=== PATIENT | female | born 1955 | race Caucasian/White ===

== ENCOUNTER 2019-02-01 13:38 | Inpatient (IN) | payer SELFPAY ==
[~2019-02-01] VITALS: Ht 157.5 cm; Wt 104.5 kg
--- NOTE | 2019-02-01 19:10 | NUR ---
HANDOFF REPORT RECEIVED FROM EFRAIN BEJARANO. PT OFF FLOOR FOR SURGERY.
--- NOTE | 2019-02-01 20:15 | CONS ---
[facility] [address], [place] [address] Signed DATE OF CONSULTATION: 02/01/2019 CHIEF COMPLAINT: Right lower quadrant abdominal pain. HISTORY OF PRESENT ILLNESS: Payal is a 63-year-old obese female, who has not been to doctor apparently in some time. They live in the [place] area and came over to our emergency room. She has had three days of increasing right lower quadrant abdominal pain. She has had decreased p.o. intake and vomiting. She has been trying to keep down liquids. In the emergency room, her blood pressure is up a little. She had temperature and she clearly has peritonitis in the right lower quadrant. White count is up at 16,000. She is a little anemic, but apparently she has had anemia in the past. Her BUN and creatinine are up a little bit and magnesium is down a little. She had a chest x-ray, which is fine, but the CT scan showed the thickened dilated appendix with stones in the appendix, but also stones in her kidneys with a fatty liver. I was asked to see her emergently here in the emergency room. In the meantime, she has receiving her second liter of saline along with her cefepime and Flagyl. 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 PAST SURGICAL HISTORY: She had an open cholecystectomy and C-sections x3. SOCIAL HISTORY: She quit smoking 6 weeks ago. She has been smoking half pack of cigarettes a day for many years. She does not drink. She has no primary care provider. They are from [place], [place]. She is to her , Quentin, at #[phone]. They have [address], but she is on disability because of her knees. They prefer the [facility]. Also, she has all her teeth removed. FAMILY HISTORY: Father had diabetes. Mother just had some coronary artery stents placed. REVIEW OF SYSTEMS: She had ten systems reviewed and the above pertinent positives are included. ALLERGIES: None. MEDICATIONS: Electronically Signed By: SHIRLENE DILLON MD 02/01/192014 PATIENT NAME: PAYAL SHAH CONSULTATION DATE OF : 59 REPORT #: [id number] PHYSICIAN: SHIRLENE DILLON MD PCP: NO PRIMARY CARE PHYSICIAN REPORT IS CONFIDENTIAL AND NOT TO BE RELEASED WITHOUT AUTHORIZATION [facility] [address], [place] [address] Signed None. PHYSICAL EXAMINATION: VITAL SIGNS: Blood pressure 141/70, heart rate is 98, her respiratory rate is 16, her temperature is 100.7, O2 sats 98%. She is 5 feet and 2 inches tall and weight is 113 kg exam. GENERAL: Payal is a 63-year-old obese female, lying supine semi-recumbent in her ER bed. Her , son, and I believe her sister are in the room. She does not appear systemically ill or toxic, but she currently does not want to move around in the bed. LUNGS: Clear to auscultation bilaterally. HEART: Regular rate and rhythm without murmurs. ABDOMEN: Obese with localized peritonitis in the right lower quadrant. LABORATORY DATA: Her white blood count 16, hemoglobin 11.4, neutrophils 86, BUN 32, creatinine 2.26, glucose 125, magnesium is 1.4. The albumin is 3.8. RADIOGRAPHIC STUDIES: Chest x-ray is unremarkable. The CT scan shows the dilated thickened appendix with stones in the appendix. She has stones in her kidneys and she has a fatty liver. ASSESSMENT AND PLAN: Payal is a 63-year-old obese female, who presents with three days of appendicitis. She is dehydrated and her renal function is certainly off. Her magnesium is low from the vomiting. At this point, she is receiving her second liter of saline and she is getting her antibiotics as well. We are going to give her some heparin, Pepcid, and some magnesium replacement. We have also called the OR crew and will be getting her appendix out here shortly. We have discussed her current findings along with the location and function of the appendix. We discussed laparoscopic versus open appendectomy. She understands expected intraop and postop course. There is risk including, but not limited to bleeding, infection, scarring, change in contour of the skin, damage to bowel, appendiceal, stump leak, postoperative intraabdominal abscess, incisional hernias, and other unforeseen comorbidities such as blood clots, heart attacks, and strokes. She and her family have expressed understanding and wished to proceed. Shirlene Dillon MD ALB/MODL /[id number] Electronically Signed By: SHIRLENE DILLON MD 02/01/192014 PATIENT NAME: PAYAL SHAH CONSULTATION DATE OF : 59 REPORT #: [id number] PHYSICIAN: SHIRLENE DILLON MD PCP: NO PRIMARY CARE PHYSICIAN REPORT IS CONFIDENTIAL AND NOT TO BE RELEASED WITHOUT AUTHORIZATION [facility] [address] [place], [place] [address] Signed cc: Shirlene Dillon MD Copies: SHIRLENE DILLON MD ~ Electronically Signed By: SHIRLENE DILLON MD 02/01/192014 PATIENT NAME: PAYAL SHAH CONSULTATION DATE OF : 59 REPORT #: [id number] PHYSICIAN: SHIRLENE DILLON MD PCP: NO PRIMARY CARE PHYSICIAN REPORT IS CONFIDENTIAL AND NOT TO BE RELEASED WITHOUT AUTHORIZATION
--- NOTE | 2019-02-01 20:15 | NUR ---
02/01/192014 Neema Sheets PATIENT DENIES PAIN AND NAUSEA. PATIENT IS MOANING WITH EACH EXHALE.
--- NOTE | 2019-02-01 21:41 | NUR ---
PT ARRIVES TO MS FLOOR, 5PA WITH MERLYN LIFT TO TRANSFER PT TO BED. PT TOLERATED WELL, CLEAN CHUX AND DRAW SHEET UNDER PT. PT RATES PAIN 8/10, PRN DILAUDID IV ADMINISTERED. PT DENIES NAUSEA. IVF INFUSING WNL ORDERED. PT ORIENTED X 4, 2L OXYGEN BY OXYMASK ON, CONT. PULSE OX IN PLACE. DRESSING CDI AT MIDLINE, NEYDA DRAIN SANGUINOUS FLUID IN BULB, NO DRAINAGE NOTED ON GAUZE. BOWEL TONES ACTIVE AT THIS TIME THROUGHOUT. SCDS ON. EFRAIN SOTO AND RT ANSHUL IN ROOM. ICE WATER AND JELLO PROVIDED. ZAMUDIO DRAINING YELLOW URINE.
--- NOTE | 2019-02-01 22:22 | NUR ---
PT WITH EYES CLOSED, ON NC 2L, SATING IN THE LOW 90'S. WOKE PT FOR POST OP VITALS. PT ATE SOME JELLO AND WATER PRIOR TO THIS. EMPTIED NEYDA DRAIN, SEROUS SANGUINOUS FLUID, 50 CC. INCISION UNCHAGED FROM ADMISSION. PT STATES PAIN "IS OK". BACK ON OXYMASK PT PLANNING TO REST. FAMILY REMAINS IN ROOM.
--- NOTE | 2019-02-01 23:40 | NUR ---
CALL LIGHT ANSWERE, PT C/O IV SITE LEAKING. R WRIST IV WAS PULLED PT PATIENT ACCIDENTLY. TIP INTACT. IVF NOW INFUSING WNL IN LEFT AC. PT REQUESTING CHICKEN BROTH. DENIES ANY PAIN AT THIS TIME. CALL LIGHT IN REACH.
--- NOTE | 2019-02-02 00:25 | NUR ---
IN PT ROOM FOR IV ANTIBIOTIC ADMINISTRATION. PT PLACED ON 2L OXYGEN BY OXYMASK, SATUARTIONS 87% ON RA PT HAD REMOVED NC. EDUCATION PROVIDED. HOB ELEVATED. SHADOWING NOTED ON MIDLINE INCISION GAUZE, AND NEYDA INSERTION SITE. POST OP VITAL SIGNS COMPLETE. PT DROWSY, FALLING TO SLEEP WITH VS. DENIES ANY PAIN. IV ANTIBIOTIC INFUSING WNL. CLEAN CATCH URINE OBTAINED FROM ZAMUDIO. CALL LIGHT IN REACH, LIGHTS OFF IN ROOM.
--- NOTE | 2019-02-02 01:51 | NUR ---
CALL LIGHT ANSWERED. PT C/O 12/08 ABDOMINAL PAIN. PRN PO PAIN MEDICATION ADMINISTERED, EDUCATION PROVIDED. VSS. SPO2 WNL ON 2L OXYGEN BY OXYMASK. CPOX IN PLACE. LIGHTS OFF IN ROOM.
--- NOTE | 2019-02-02 03:48 | NUR ---
OXYGEN REAPPLIED TO PT, SPO2 88% ON RA PT REMOVED OXYMASK. PLACED ON NC PER PT REQUEST. SPO2 WNL. CONT. PULSE OX ON. IVF INFUSING WNL ORDERED. CALL LIGHT IN REACH. LIGHTS OFF IN ROOM.
--- NOTE | 2019-02-02 06:14 | NUR ---
PT ASSESSMENT COMPLETE. VS STABLE. NEYDA DRAIN STRIPPED AND EMPTIED 55 ML SS FLUID. SMALL AMT SHADOWING ON MIDLINE INCISIONAL DRESSING AND NEYDA GAUZE. PT REFUSES REMOVAL OF DRESSING AT THIS TIME. OCCASIONAL SHARP PAIN IN RLQ, TENDER W PALPATION. PT RATES PAIN 4/10. PRN PO PAIN MEDICATION ADMINISTERED. DENIES NAUSEA. ZAMUDIO EMPTIED. BOWEL TONES HYPOACTIVE X 4. SPO2 WNL ON 2L OXYGEN BY NC. CALL LIGHT IN REACH.
--- NOTE | 2019-02-02 06:47 | NUR ---
PT BACK FROM SURGERY AT 2049. POST OP VSS. PAIN CONTROLLED WITH PO NORCO 1 TABLET. NEYDA DRAIN EMPTIED 105 MLS THIS SHIFT SS FLUID. SMALL AMT SS SHADOWING ON GAUZE AT MIDLINE AND NEYDA INSERTION SITE. BOWEL TONES HYPOACTIVE X 4, ABD SOFT, TENDER IN RUQ. ON 2L OXYGEN BY NC OR OXYMASK THROUGHOUT SHIFT. CPOX IN PLACE.
--- NOTE | 2019-02-02 07:28 | OR ---
[facility] [address] [place], [place] [address] Signed DATE OF OPERATION: 02/01/2019 SURGEON: Shirlene Avendaoñ MD PREOPERATIVE DIAGNOSIS: Acute appendicitis. POSTOPERATIVE DIAGNOSIS: Retrocecal ruptured appendicitis with abscess. PROCEDURE: 1. Laparoscopic converted to open appendectomy. 2. Retrocecal drain placement. ESTIMATED BLOOD LOSS: Minimal. FINDINGS: The appendix was underneath the cecum and the mesentery to the terminal ileum forming an abscess cavity, full of pus. The appendix was ruptured. Consequently, a drain was left in the abscess cavity. We could not expose the deep abscess cavity well enough to constantly identify all structures, if she was converted to an open procedure. INDICATIONS: Payal is a 63-year-old female of 5 feet 2 inches, 113 kg. For at least three days, she has had right lower quadrant abdominal pain with decreased p.o. intake and vomiting. She has been trying to stay hydrated with some p.o. fluids. Her family brought her to our local emergency room for evaluation. She clearly was uncomfortable and of course moving around made it worse. Her temperature was 100.7. She had localized peritonitis in her right lower quadrant. White count was elevated. BUN and creatinine were elevated and magnesium was low. She had a chest x-ray, which was unremarkable. CT scan of the abdomen and pelvis showed the stones in the appendix along with a very thickened dilated appendix with significant periappendiceal inflammation. I was asked to see her urgently in the emergency room. She did receive antibiotics, 2 L of saline, and some magnesium replacement along with her subcutaneous heparin and some Pepcid. I met with Payal, her , and the rest of the family and we had a long discussion regarding her current findings. We discussed the location of function of the appendix. We discussed laparoscopic versus open appendectomy. 3% of the appendectomy was needed to be done open and she certainly was a high candidate for that. Nevertheless, we always start laparoscopically. We did review the expected intraop and postop course. There is risk Electronically Signed By: SHIRLENE AVENDAÑO MD 02/02/19 0728 PATIENT NAME: PAYAL SHAH OPERATIVE REPORT DATE OF : 59 REPORT #: [id number] PHYSICIAN: SHIRLENE AVENDAÑO MD PCP: NO PRIMARY CARE PHYSICIAN REPORT IS CONFIDENTIAL AND NOT TO BE RELEASED WITHOUT AUTHORIZATION [facility] [address] [place], [place] [address] Signed to surgery including, but not limited to bleeding, infection, scarring, change in contour of the skin, damage to bowel, appendiceal stump leak, postoperative intraabdominal abscess, incisional hernias, and other unforeseen comorbidities. They had expressed understanding and wished to proceed. PROCEDURE NOTE: Payal was taken in the operating room and placed in a supine position under general endotracheal tube anesthesia. She was given her preoperative antibiotics along with the subcutaneous heparin. SCDs were utilized. A Ryder catheter was inserted with return of clear yellow urine. She was then prepped and draped in usual sterile fashion. We went ahead and placed our Xi trocar through a standard midline supraumbilical incision. We immediately could see the loop of small bowel that was adherent to the right lower quadrant. She had some adhesions in the right upper quadrant from her previous open appendectomy. She also had a small adhesion just below the umbilicus from previous surgery. We inserted our 5 mm suprapubic trocar under direct visualization. The Blunt Nose grasper was inserted and we were able to sweep the loop of the ileum down from the wall of the right lower quadrant. Underneath that was actually the terminal ileum. After few minutes, we were able to enter the abscess cavity. However, the cecum was somewhat deep along with the appendix. We certainly could not identify the structures adequately and we could not elevate the appendix or the cecum in order to improve our visualization. In addition, there were significant inflammatory changes. Even after irrigation and suction, our visualization was no better. Consequently, we converted her to an open midline incision. This was done sharply with a knife and cautery. The abdomen was entered without difficulty. We had an additional nurse scrub in. We used our Ricardo retractors to give us exposure. I was able to free up the White line of Toldt along the distal right colon and the cecum and that brought our cecum and appendix up out of the right lower quadrant. However, with her body habitus, we were not up out of the abdomen. Nevertheless, we could now see the base of the appendix as it joined the cecum and we followed it down to the tip of the appendix. The base of the appendix was divided between Pean clamps and then we over sewed the appendiceal stump with two [id number] 0 Vicryl sutures. We felt very good about our appendiceal stump. It was gently cauterized. The mesoappendix was clamped, divided, and tied with an 0 Vicryl suture. We then over sewed the mesoappendix with a [id number] 0 Vicryl suture as well. Again, we felt very secured in that. We then irrigated and suctioned out the abscess cavity quite extensively. A #10 flat Juancarlos drain was brought through the lateral side of the right mid quadrant of the abdomen and underneath the cecum and into the abscess cavity and then the tip went down into the pelvis itself. The cecum and small bowel were allowed to return to its position and we placed the omentum over that. The midline fascia was closed with interrupted #1 [id number]-[id number]-[id number] PDS sutures. We then injected local anesthetic into the abdominal wall along with the subcutaneous tissues. The wound was irrigated and suctioned out until clear. The dermis was reapproximated with interrupted 3-0 subcuticular Monocryl sutures. The skin was reapproximated with Electronically Signed By: SHIRLENE AVENDAÑO MD 02/02/19 0728 PATIENT NAME: PAYAL SHAH OPERATIVE REPORT DATE OF : 59 REPORT #: [id number] PHYSICIAN: SHIRLENE AVENDAÑO MD PCP: NO PRIMARY CARE PHYSICIAN REPORT IS CONFIDENTIAL AND NOT TO BE RELEASED WITHOUT AUTHORIZATION [facility] [address] [place] [id number] Signed ruthann. Dry gauze and tape were then applied. Payal's Ryder catheter was left in place. She was awakened from her anesthesia, extubated in the OR, and taken to the recovery room in stable condition. MD MARISOL Shankar/FARIHAL /[id number] Copies: ~ Electronically Signed By: SHIRLENE AVENDAÑO MD 02/02/19 0728 PATIENT NAME: PAYAL SHAH OPERATIVE REPORT DATE OF : 59 REPORT #: [id number] PHYSICIAN: SHIRLENE AVENDAÑO MD PCP: NO PRIMARY CARE PHYSICIAN REPORT IS CONFIDENTIAL AND NOT TO BE RELEASED WITHOUT AUTHORIZATION
--- NOTE | 2019-02-02 10:00 | NUR ---
PATIENT IN BED RESTING. SHE ATE HER BREAKFAST. WARM WASHCLOTH OFFERED. CALL LIGHT IN REACH. NO FURTHER NEEDS AT THIS TIME. WATER REFRESHED.
--- NOTE | 2019-02-02 10:05 | NUR ---
PT REPORTED IMPROVEMENT IN PAIN IN ABDOMEN AFTER DILAUDID ADMINISTRATION. RESTING IN BED NOW. FILTER BED PLACER TOOK VITAL SIGNS. VSS. MADE PLAN WITH PATIENT TO AMBULATE OUT OF BED TWICE TODAY AND REMOVE ZAMUDIO CATHETER ONCE SHE HAS WALKED.
--- NOTE | 2019-02-02 11:41 | NUR ---
PT AMBUALTED IN HALLS WITH PHYSICAL THERAPY, BACK TO BED, REPORTS PAIN 03/09 NOW. 1 TAB NORCO GIVEN NOW
--- NOTE | 2019-02-02 19:42 | NUR ---
REPORT RECEIVED, PT RESTING IN BED, NO NEEDS AT THIS TIME, IV FLUISD INFUSING PER EMAR WNL. CALL LIGHT WITHIN REACH. FAMILY AT BEDSIDE. ON CPOX, O2 SAT >90%. ON RA, NO C/O SOB/CP.
--- NOTE | 2019-02-02 20:15 | NUR ---
EVENING MEDS ADMINISTERED, PT C/O 8/10 ABDOMINAL PAIN AFTER REPOSITIONING, PT GIVEN PRN PAIN MEDICATION PER EMAR. PT TOLERATED WELL. IV FLUIDS/ABX INFUSING PER EMAR WNL. PT RESTING IN BED, AOX4, APPROPRIATE, LS CLEAR/DIMINISHED, PT ENCOURAGED TO CDB, BT ACTIVE, ABD TENDER TO PALPATION. NEYDA DRAIN AND MIDLINE INCISION C/D/I, SMALL AMOUNT OF DRG IN NEYDA DRAIN, SEROSANGUINEOUS. SCD'S ON, PT STATES CMS INTACT, DENIES FURTHER NEEDS AT THIS TIME. CALL LIGHT WITHIN REACH.
--- NOTE | 2019-02-02 20:38 | EKG ---
[facility] [address] [facility] [place] [address] Signed Normal sinus rhythm Moderate voltage criteria for LVH, may be normal variant Borderline ECG No previous ECGs available Confirmed by ANDRAE PICKARD MD ([id number]) on 02/02/2019 8:38:25 PM Electronically Signed By: ANDRAE PICKARD MD 02/02/19 2038 PATIENT NAME: KRISTAL SHAH Electrocardiogram DATE OF : 59 PHYSICIAN: ANDRAE PICKARD MD REPORT #: [id number] REPORT IS CONFIDENTIAL AND NOT TO BE RELEASED WITHOUT AUTHORIZATION
--- NOTE | 2019-02-02 22:49 | NUR ---
PT C/O 5/10 PAIN IN ABDOMEN, PRN PAIN MEDICATION GIVEN PER EMAR. PT TOLERATED WELL. NO FURTHER REQUESTS AT THIS TIME. IV FLUIDS INFUSING PER EMAR WNL. CALL LIGHT WITHIN REACH. FAMILY AT BEDSIDE.
--- NOTE | 2019-02-03 01:00 | NUR ---
PT GIVEN PRN PAIN MEDICATION DUE TO C/O 03/09 ABDOMINAL PAIN. PT'S IV ABX INFUSING PER EMAR WNL. NO FURTHER REQUESTS AT THIS TIME. PT'S O2 SAT NOTED TO BE 88%, PT DENIES SOB/CP, PT PLACED ON 2LNC, TOLERATING WELL. CALL LIGHT WITHIN REACH.
--- NOTE | 2019-02-03 04:11 | NUR ---
PT C/O ITCHING RELATED TO NASAL CANNULA, PT PLACED ON OXY MASK AT 1L, PT TOLERATING WELL. O2 SAT > 90%. IV FLUIDS INFUSING PER EMAR WNL. CALL LIGHT WITHIN REACH.
--- NOTE | 2019-02-03 06:15 | NUR ---
PT GIVEN PRN PAIN MEDICATION PER PTS REQUEST FOR 03/09 PAIN, PT ON RA, NO C/O SOB/CP, PT AWAKE RESTING IN BED, IV FLUIDS INFUSING PER EMAR WNL. CALL LIGHT WITHIN REACH. FALL PRECAUTIONS IN PLACE.
--- NOTE | 2019-02-03 07:05 | NUR ---
BEDSIDE REPORT...PT RESTING IN BED ALERT AND ORIENTED. SMILING AND LAUGHING.
--- NOTE | 2019-02-03 10:02 | NUR ---
PT REPORTS PAIN 4/10 IN ABD. DRESSING CHANGED AT NEYDA AND CLEANED SITE DUE TO DRAINAGE. TWO TABS NORCO 5/325MG PRN PO GIVEN
--- NOTE | 2019-02-03 11:02 | NUR ---
PT RESTING IN BED, ORGAN PIPE FINISHER INTO VISIT ALSO FRIENDS INTO VISIT AT THIS TIME.
--- NOTE | 2019-02-03 12:08 | NUR ---
REPORTS PAIN 4/10 INTERMITTEN, REPORTS SHE DOES NOT WANT PAIN MEDICATIONS AT THIS TIME.
--- NOTE | 2019-02-03 12:30 | NUR ---
[facility] REPORT PAIN 7/10 AT ABD. 1MG I.V. DILAUDID PRN.
--- NOTE | 2019-02-03 13:23 | NUR ---
PT RESTING QUIETLY IN BED EYES CLOSED RR EVEN. PT APPEARS TO BE SLEEPING
--- NOTE | 2019-02-03 15:41 | NUR ---
PT CAITLYN NEGRETE AT SIDE OF BED VISITNG WITH SPOUSE. ICE PACK TO ABD. REPROTS PAIN IS TOLERABLE AT THIS TIME. PT TOLERATING FULL LIQUIDS WELL.
--- NOTE | 2019-02-03 15:46 | NUR ---
CALL LIGHT ANSWERED. PATIENT SITTING UP IN BED. IN ROOM. PATIENT GOES TO USE BATHROOM. PATIENT USES A WALKER. ONE PERSON ASSISTING. PATIENT BACKS TO BED. WARM BLANKET AND ICE PACK PROVIDED. PATIENT IS GOING TO TAKE A SHOWER AFTER DINNER. CALL LIGHT WITHIN REACH. NO OTHER NEEDS AT THIS TIME
--- NOTE | 2019-02-03 17:16 | NUR ---
PATIENT RESTING IN BED. VITAL SIGNS AND I&O DONE. CALL LIGHT WITHIN REACH. NO OTHER NEEDS AT THIS TIME
--- NOTE | 2019-02-03 17:55 | NUR ---
PT HAS BEEN UP AMBULATING IN LEVY, HAD TO GIVE IV PAIN MEDICATION ONCE, PO Q4 NORCO GIVEN OVER SHIFT. PT DIET ADVANCED, TOLERATING FAIR ONLY TRYING FULL LIQUIDS SO FAR. ON ROOM AIR, IVF INFUSING WNL, SCDS ON, PT SLEEPING INTERMITTEN OVER SHIFT, HAS BEEN UP TO RECLINER FOR MEALS. NEYDA IN PLACE DRAINING SMALL AMOUNT OF SEROSANGUINEOUS FLUID. SHE IS ALERT AND PLEASANT. MIDLINE SURGERY SITE, MARTITA INTACT, DRY.
--- NOTE | 2019-02-03 19:30 | NUR ---
REPORT RECEIVED, PT RESTING IN BED, NO NEEDS AT THIS TIME, CALL LIGHT WITHIN REACH. FAMILY AT BEDSIDE.
--- NOTE | 2019-02-03 22:41 | NUR ---
PT C/O 01/07 PAIN, PT GIVEN PRN PAIN MEDICATION PER EMAR. NO FURTHER REQUESTS AT THIS TIME. FAMILY AT BEDSIDE. IV FLUIDS INFUSING PER EMAR WNL.
--- NOTE | 2019-02-04 00:40 | NUR ---
PT C/O 05/10 PAIN AFTER USING THE RESTROOM. PT GIVEN PRN PAIN MEDICATION PER EMAR. PT STATES THAT PAIN WORSENED WITH AMBULATION AND AFTER SHE ATTEMPTED TO LAY ON HER SIDE. INCISION REMAINS C/D/I, NEYDA INTACT, NO FURTHER REQUESTS AT THIS TIME, CALL LIGHT WITHIN REACH. FALL PRECAUTIONS IN PLACE. IV FLUIDS INFUSING PER EMAR WNL.
--- NOTE | 2019-02-04 03:00 | NUR ---
PRN PAIN MEDICATION GIVEN, PT C/O 4/10 PAIN RELATED TO ABDOMEN, PT STATES THAT IT INCREASES TO 7-8/10 WITH MOVEMENT, NO FURTHER REQUESTS AT THIS TIME, CALL LIGHT WITHIN REACH. FALL PRECAUTIONS IN PLACE. FAMILY AT BEDSIDE.
--- NOTE | 2019-02-04 04:42 | NUR ---
PT AOX4 THIS SHIFT, APPROPRIATE, PT RECEIVED PRN PAIN MEDICATION X3 THIS SHIFT DUE TO ABD PAIN. MIDLINE INCISION C/D/I, NEYDA DRAIN INTACT, SMALL AMOUNT OF SEROSANGUINEOUS DRAINAGE, PT IS A 1 PERSON ASSIST W/CANE/WALKER TO BATHROOM. IV FLUIDS/ABX INFUSED PER EMAR WNL. PT'S VSS, AFEBRILE, UO QS. USES CALL LIGHT APPROPRIATELY. PT ON RA WHILE AWAKE, ON OXY MASK AT 2L WHEN SLEEPING.
--- NOTE | 2019-02-04 05:05 | NUR ---
PT NOTED TO BE NAUSEOUS, WRETCHING AT BEDSIDE, PT GIVEN PRN ZOFRAN FOR NAUSEA, PT BACK TO BED, RESTING, NO FURTHER NEEDS AT THIS TIME, CALL LIGHT WITHIN REACH. FALL PRECAUTIONS IN PLACE.
--- NOTE | 2019-02-04 05:35 | NUR ---
PT RESTING IN BED, DENIES NAUSEA AT THIS TIME, CALL LIGHT WITHIN REACH. LAB IN ROOM.
--- NOTE | 2019-02-04 07:15 | NUR ---
BEDSIDE HANDOFF REPORT RECEIVED FROM AUDIO NARRATOR RN. PT RESTING IN BED. PT DENIES NEEDS AT THIS TIME.
--- NOTE | 2019-02-04 07:45 | NUR ---
PT REPORT OF IV LEAKING, IV ACCIDENTALLY PULLED OUT, REMOVED. NEW IV INSERTED TO LEFT FOREARM. PT RATING PAIN 5/10 TO ABD, REQUESTING PAIN MEDICATION. PT ON ROOM AIR, LUNG SOUNDS CLEAR. BOWEL TONES ACTIVE, DENIES NAUSEA AT THIS TIME. CMS INTACT, WITHOUT EDEMA, SCDS IN PLACE. D5LR AT 850 INFUSING. MIDLINE INCISION WITH MARTITA, OPEN TO AIR, WITHOUT DRAINAGE. NEYDA DRAIN TO RIGHT ABD, DRAINING SEROSANGUINOUS FLUID. DISCUSSED PLAN OF CARE FOR THE DAY, PT DENIES OTHER NEEDS AT THIS TIME.
--- NOTE | 2019-02-04 07:50 | NUR ---
PATIENT RESTING IN BED. IN ROOM. SETS UP BATHROOM FOR SHOWER. PATIENT'S IV IS LEAKING. RN NOTIFIED. CALL LIGHT WITHIN REACH. NO OTHER NEEDS AT THIS TIME
--- NOTE | 2019-02-04 08:00 | NUR ---
MORNING MEDICATIONS ADMINISTERED BY BURSING STUDENT WITH DIRECT SUPERVISION. PT RESTINGINBED. PT DENIES NEEDS AT THIS TIME.
--- NOTE | 2019-02-04 09:38 | NUR ---
ENTERED PT'S ROOM TO DO VITALS, I & O, AND FOCUSED ASSESSMENTS. PT IS LAYING IN BED, COMFORTABLE AND RESTING.
--- NOTE | 2019-02-04 10:32 | NUR ---
PT SALINE LOCKED FOR WALK AND SHOWER.
--- NOTE | 2019-02-04 11:04 | NUR ---
PATIENT AMBULATING IN THE HALLWAY WITH STUDENT RN
--- NOTE | 2019-02-04 11:38 | NUR ---
PT WENT FOR A WALK AND HAD A SHOWER WHICH WAS WELL TOLERATED. PT DENIES NAUSEA. PT IS CURRENTLY IN BED AND RESTING. CALL LIGHT IS WITHIN REACH. THERE WAS A SMALL AMOUNT OF LIQUID POOP ON PAD OF BED.
--- NOTE | 2019-02-04 13:32 | NUR ---
PATIENT RESTING IN BED. IN ROOM. VITAL SIGNS AND I&O DONE. CALL LIGHT WITHIN REACH. NO OTHER NEEDS AT THIS TIME
--- NOTE | 2019-02-04 14:41 | NUR ---
PT WALKING IN LEVY WITH NURSE AIDE.
--- NOTE | 2019-02-04 15:34 | NUR ---
PT SITTING IN CHAIR. WALKED IN LEVY. HAD BM AFTER WALK. PT ON ROOM AIR LUNG SOUNDS CLEAR. BOWEL TONES ACTIVE, DENIES NAUSEA. IV FLUIDS INFUSING D5LR AT 50 ML/HR. PT RATING PAIN TOLERABLE AT THIS TIME. PT DENIES OTHER NEEDS AT THIS TIME.
--- NOTE | 2019-02-04 16:46 | NUR ---
PT REQUESTING PAIN MEDICATION. PT RATING PAIN 6/10 TO ABD, GIVEN 2 TABS NORCO. PT RESTIGN IN BED. PT DENIES OTHER NEEDS AT THIS TIME.
--- NOTE | 2019-02-04 17:33 | NUR ---
PATIENT SITTING UP IN BED. IN ROOM. VITAL SIGNS AND I&O DONE. CALL LIGHT WITHIN REACH. NO OTHER NEEDS AT THIS TIME
--- NOTE | 2019-02-04 18:05 | NUR ---
PT ON ROOM AIR, LUNG SOUNDS CLEAR. PAIN WELL CONTROLLED WITH [place] 2 TABS. BOWEL TONES ACTIVE, NAUSEATED THIS AM, IMPROVED THROUGHOUT DAY, ENCOURAGED CRACKERS/FOOD WITH PAIN MEDICATION, HAD BM TODAY. PT UP WITH 1PA AND FWW, WALKED IN LEVY. CMS INATCT, WITHOUT EDEMA, SCDS IN PLACE. D5LR AT 50 ML/HR, CEFEPIME AND FLAGYL. TOLERATING REGULAR DIET. MIDLINE INCISION OPEN TO AIR, MARTITA IN PLACE, NEYDA TO RIGHT ABD DRAINING SEROSANGUINOUS FLUID. PT VOIDING QS.
--- NOTE | 2019-02-04 18:40 | NUR ---
PT ASSISTED TO WALK IN LEVY, TOLERATED 1 LAP. PT ASSISTED TO BATHROOM, HAD SMALL BM AND VOIDED. PT ASSISTED BACK TO BED. PT DENIES OTHER NEEDS AT THIS TIME.
--- NOTE | 2019-02-04 19:15 | NUR ---
BEDSIDE REPORT RECEIVED FROM OFFGOING RN. PT RESTING IN BED WITH AT BEDSIDE. PT DENIES NEEDS AT THIS TIME. CALL LIGHT IN REACH.
--- NOTE | 2019-02-04 20:33 | NUR ---
PT ASSESSMENT COMPLETE. PT RATES PAIN 3-4/10, REQUESTS PRN PAIN MEDICATION. PT DENIES NAUSEA AND SOB. PT COUGHING OCCASIONALLY THROUGHOUT ASSESSMENT. REPORTS OCCASIONAL MUCOUS PRODUCATION, STATES SHE HAS BEEN SWALLOWING MUCOUS, UNSURE OF COLOR. LUNG SOUNDS DIM IN BASES BILATERALLY. PT TOLERATING ROOM AIR WELL. BT'S ACTIVE, PT REPORTS SLIGHT ABD TENDERNESS UPON PALPATION. MILINE INCISION WELL APROXIMATED, MARTITA IN PLACE. NO DRAIAGE NOTED. NEYDA DRAIN DRAINING SEROSANG DRAINAGE. PT STATES THAT SHE IS AFRAID TO GO HOME. THERAPUETIC COMMUNICATION PROVIDED. PT STATES THAT SHE IS AFRAID TO GO HOME BECAUSE SHE "ALMOST ". EDUCATION REGARDING PT'S PROCEDURE DISCUSSED WITH PT. PT DENIES FURTHER NEEDS OR QUESTIONS AT THIS TIME. PT STATES THAT SHE FEELS BETTER AFTER HAVING SOMEONE TO TALK TO. PT'S REMAINS AT BEDSIDE. POC FOR THIS SHIFT DISUCCSED WITH PT. CALL LIGHT IN REACH.
--- NOTE | 2019-02-04 22:01 | NUR ---
CHARGE NURSE ROUNDING NOTE: AWAKE, IN BED, VISITING WITH FAMILY, NO C/O PAIN, IVF INFUSING. CALL LIHT AND FLUIDS AT BEDSIDE
--- NOTE | 2019-02-04 22:29 | NUR ---
PT RESTING IN BED WITH EYES CLOSED. DOES NOT WAKE WHILE ENGINE ROOM HELPER IN DOORWAY. PT'S AWAKE ON COUCH, WAVES AT ENGINE ROOM HELPER. CALL LIGHT IN REACH.
--- NOTE | 2019-02-05 00:35 | NUR ---
PT RESTING IN BED, WAKES EASILY. PT DENIES PAIN, STATES THAT SHE HAS BEEN RESTING WELL. PT STATES "I THINK I GET TO GO HOME TODAY". PT DENIES NEEDS AT THIS TIME. CALLLIGHT WITHIN REACH. PT'S SLEEPING ON THE COUCH.
--- NOTE | 2019-02-05 03:15 | NUR ---
PT RESTING IN BED WITH EYES CLOSED. RESPIRATIONS EVEN AND UNLABORED. PT APPEARS TO BE SLEEPING. DOES NOT WAKE WHILE MEAL COOK IN DOORWAY. CALL LIGHT IN REACH, SLEEPING ON COUCH.
--- NOTE | 2019-02-05 05:51 | NUR ---
PT ASSESSMENT COMPLETE. PT REPORTS PAIN 6/10 TO ABD AND BILATERAL HIPS. PRN PAIN MEDICATION ADMINISTERED. PT DENIES NAUSEA AND SOB AT THIS TIME. LUNG SOUNDS DIM IN BILATERAL BASES. PT REPORTS CONTINUED OCCASIONAL COUGH WITH MUCOUS PRODUCTION. MIDLINE INCISION WELL APPROXIMATED. NO DRAINAGE NOTED. NEYDA DRAIN WITH SEROSANG DRAINAGE, GAUZE WITH SLIGHT SEROSANG DRAINAGE. BT'S ACTIVE. PT REPORTS ABD TENDERNESS "WHEN YOU LIFT IT UP". PT ASSISSTED TO THE BATHROOM AND BACK TO BED WITH 1 PA AND FWW, TOLERATED WELL. PT APPEARS LESS ANXIOUS THIS AM. STATES THAT IF THE DOCTOR FEELS SHE IS READY TO GO HOME, THEN SHE FEELS OK TO GO. PT DENIES FURTHER QUESTIONS OR NEEDS AT THIS TIME. CALL LIGHT IN REACH. PT'S SLEEPING ON COUCH.
--- NOTE | 2019-02-05 07:28 | NUR ---
REPORT RECEIVED FROM CLERK CASHIER RN. PT IN BED WITH EYES CLOSED. RESPIRATIONS EQUAL AND NONLABORED. D5LR AT 50ML/HR. CALL LIGHT IN REACH.
--- NOTE | 2019-02-05 07:45 | NUR ---
PT WITH SBA UP TO CHAIR FOR BREAKFAST. PT REPORTS PAIN IS TOLERASBLE. NEYDA WITH SEROSANG DRAINAGE. SITE WNL. CALL LIGHT IN REACH.
[2019-02-05] MEDS ORDERED: LEVAQUIN500 MG PO (10:47)
[2019-02-05] MEDS ORDERED: FLAGYL500 MG PO (10:47)
[2019-02-05] MEDS ORDERED: NORCO 5-325 TA1 EACH PO (10:49)
[2019-02-05] MEDS ORDERED: TYLENOL325 MG PO (10:51)
--- NOTE | 2019-02-05 11:00 | NUR ---
ROUNDED WITH DR AVENDAÑO. PLAN OF CARE DISCUSSED. QUESTIONS AND CONCERNS ADRESSED. NEW ORDERS RECEIVED.
--- NOTE | 2019-02-05 14:00 | NUR ---
EVERY OTHER STAPLE REMOVED PER DR ORDER. EDUCATION AND TEACH BACK FOR DRAIN EMPTYING COMPLETED. PT DID WELL. WILL RE EVALUTE SKILL ONCE MORE BEFORE DISCHARGE.
--- NOTE | 2019-02-05 15:40 | NUR ---
POTASSIUM PHOS COMPLETED. PT ABLE TO DEMONSTRATE PROPER DRAIN EMPTYING. DICHARGE INSTRUCTIONS AND CHART FOR DRAIN GIVEN.
--- NOTE | 2019-02-06 07:34 | DS ---
[facility] [address], [place] [address] Signed ADMISSION DATE: 02/01/2019 DISCHARGE DATE: 02/05/2019 FINAL DIAGNOSES: 1. Ruptured appendicitis with abscess. 2. Acute renal failure. 3. Chronic anemia. 4. Obesity. PROCEDURES: 1. Laparoscopic converted to an open appendectomy. 2. CT scan of abdomen and pelvis. HISTORY OF PRESENT ILLNESS: Payal is a 63-year-old obese female, who over three days was having right lower quadrant abdominal pain with anorexia and vomiting. Her family brought her to our local emergency room for evaluation. She was not systemically ill or toxic, but she clearly had localized peritonitis in the right lower quadrant. White count was elevated and she was in acute renal failure. CT scan showed the appendicitis along with some appendicolith. I was asked to admit her as a general surgeon on-call. HOSPITAL COURSE: Payal was taken to the operating room that same day for a laparoscopic converted to an open appendectomy. She did have an abscess cavity underneath that mesentery of the terminal ileum. Consequently, a drain was placed. We kept her on cefepime and Flagyl throughout the hospital course, and she has made progress each and every day. Her renal function is almost back to normal. However, she remains anemic with a hemoglobin around 9.2, but a normal mean cell volume at 92. BUN is down to 19 with a creatinine of 1.38. We also replaced her potassium, phosphorus and magnesium nearly every day. White count is back to normal. The drain output is quite low and is now serous. Incision is healing well without any local signs or symptoms of infection and the abdominal exam is benign. She is tolerating p.o. and having good bowel movements. At this point, she has reached discharge status. DISCHARGE PLANS AND MEDICATIONS: Payal is going to be discharged home with a prescription for Levaquin just 500 mg one p.o. daily for 4 days. That should be fine given her body mass index with respect to her renal function. The Flagyl will be 500 mg one p.o. t.i.d. for 4 days. I have written for [place] 5/325 1-2 tablets p.o. q.6 hours p.r.n. for severe postoperative pain. We will dispense 20 tablets with no refills. She can also use Tylenol for [id number] postoperative pain. She can purchase that [id number]. We will have asked her not Electronically Signed By: SHIRLENE DILLON MD 02/06/19 0734 PATIENT NAME: PAYAL SHAH DISCHARGE SUMMARY DATE OF : 59 REPORT #: [id number] PHYSICIAN: SHIRLENE DILLON MD PCP: NO PRIMARY CARE PHYSICIAN REPORT IS CONFIDENTIAL AND NOT TO BE RELEASED WITHOUT AUTHORIZATION [facility] [address] [place] [id number] Signed to take any NSAIDs for the next couple weeks until her kidney function recovers completely. She also asked to make an appointment with our [facility], so she can establish as a new patient. She certainly has chronic anemia and she needs to have the renal function rechecked. In addition, she has never had a colonoscopy, which would be part of her anemia workup. I have asked her to follow a regular diet as she is doing now. She should not do any heavy pushing, pulling, or lifting over 20 pounds. She is welcome to shower and bathe as usual. We are going to leave one-half of her ruthann in place. We will leave a drain in place for now and I will see her back in the office in about 5-7 days for surgical followup. She and her have expressed understanding and agreed above plan. Shirlene Dillon MD ALB/MODL /[id number] cc: Shirlene Dillon MD [facility] Copies: SHIRLENE DILLON MD ~ Electronically Signed By: SHIRLENE DILLON MD 02/06/19 0734 PATIENT NAME: PAYAL SHAH DISCHARGE SUMMARY DATE OF : 59 REPORT #: [id number] PHYSICIAN: SHIRLENE DILLON MD PCP: NO PRIMARY CARE PHYSICIAN REPORT IS CONFIDENTIAL AND NOT TO BE RELEASED WITHOUT AUTHORIZATION
== END 2019-02-05 15:45 | disposition home or self-care (01) | DRG 339 ==
LOC: ED 13:38 → MS 17:03
PROVIDERS: ADMIT Colon & Rectal Surgery
PROC: 0DTJ0ZZ Resection of Appendix, Open Approach (ICD-10-PCS; principal; 2019-02-01 17:50)
PROC: 0DJD4ZZ Inspection of Lower Intestinal Tract, Percutaneous Endoscopic Approach (ICD-10-PCS; 2019-02-01 17:50)
DX: K35.33 Acute appendicitis with perforation, localized peritonitis, and gangrene, with abscess (principal); N17.9 Acute kidney failure, unspecified; Z68.41 Body mass index [BMI] 40.0-44.9, adult; K76.0 Fatty (change of) liver, not elsewhere classified; E86.0 Dehydration; D64.89 Other specified anemias; E87.6 Hypokalemia; E83.39 Other disorders of phosphorus metabolism; E83.42 Hypomagnesemia; N20.0 Calculus of kidney; E66.9 Obesity, unspecified; Z87.891 Personal history of nicotine dependence; Z53.31 Laparoscopic surgical procedure converted to open procedure; Z90.49 Acquired absence of other specified parts of digestive tract
CPT/HCPCS: 00840; 36415; 71045; 74176; 80048; 80053; 81001; 83690; 83735; 84100; 85025; 87088; 93005; 93010; 94760; 94762; 96361; 96374; 96375; 99285-25; J0131; J0330; J0360; J0692; J1100; J1170; J1644; J2405; J2550; J2704; J3010; J3475; J7030; J7060; J7120